=== PATIENT | male | born 1955 | race Caucasian/White ===

== ENCOUNTER 2016-04-12 13:49 | Emergency (ER) | payer SELFPAY ==
--- NOTE | 2016-04-12 19:14 | RAD ---
CHEST TWO VIEWS 04/12/16 Comparison is made with an 09/23/06 study. The heart has enlarged slightly in the interval and the aor ta has become slightly more dilated and tortuous. The lungs show no lobar consolidation or effusion. There was a questionable area of mild increase in lung markings in the vicinity of the base of the right upper lobe. The finding is equivocal but could represent a minimal infiltrate. The lungs are o therwise clear. IMPRESSION: 1. Interval mild increase in heart size. 2. Equivocal increase in lung markings around the base of the right upper lobe. POS: HOME
== END 2016-04-12 16:40 | disposition home or self-care (01) ==
LOC: BURERS 13:49
DX: J18.9 Pneumonia, unspecified organism (principal); F17.210 Nicotine dependence, cigarettes, uncomplicated
CPT/HCPCS: 71020

== ENCOUNTER 2017-02-18 09:10 | Emergency (ER) | payer MEDICAID, SELFPAY ==
--- NOTE | 2017-02-18 09:50 | RAD ---
CHEST TWO VIEWS: History: Cough, congestion, fever. Comparison: 04-12-16 FINDINGS: Cardiac silhouette is unremarkable. Pulmonary vasculature is upper limits of normal. Mediastinum is m idline. There is no confluent airspace consolidation, pneumothorax or pleural fluid evident. IMPRESSION: 1. No active cardiopulmonary abnormalities are demonstrated. POS: [facility]
== END 2017-02-18 09:50 | disposition home or self-care (01) ==
LOC: BURERS 09:10
DX: J20.9 Acute bronchitis, unspecified (principal); F17.210 Nicotine dependence, cigarettes, uncomplicated; I25.10 Atherosclerotic heart disease of native coronary artery without angina pectoris; I71.9 Aortic aneurysm of unspecified site, without rupture; Z79.899 Other long term (current) drug therapy
CPT/HCPCS: 71020

== ENCOUNTER 2018-02-09 20:09 | Emergency (ER) | payer MEDICAID, OTHER ==
[2018-02-09 20:49] LABS: Clarity Cloudy (Clear); Glucose, Urine (Dipstick) Negative (Negative); Leukocyte Negative (Negative); Nitrite Negative (Negative); Protein, Urine (Dipstick) Trace mg/dL (Neg-Trace); Specific Gravity, Urine 1.024 (1.002-1.036); pH, Urine 5.5 (5.0-9.0)
[2018-02-09 20:50] LABS: Bilirubin Small (Negative); Blood, Urine Large (Negative)
[2018-02-09 20:51] LABS: Bacteria/HPF Rare-Few HPF (None Seen); Crystals/HPF None Seen HPF (Negative); Hyaline Casts/LPF NONE SEEN LPF (0-3 Hyaline); Other Casts/LPF None Seen LPF (0-3 Hyaline); Oval Fat Bodies/HPF None Seen HPF (None Seen); RBC/HPF GREATER THAN 50-TNTC HPF (0-3); Renal Epithelial None Seen HPF (0-3); Sperm/HPF None Seen HPF (None Seen); Squamous Epithelial None Seen HPF (0-3); Transitional Epithelial NONE SEEN HPF (0-3); Trichomonas/HPF None Seen HPF (None Seen); WBC/HPF None Seen HPF (0-3); Yeast-All Forms None Seen HPF (None Seen)
--- NOTE | 2018-02-09 21:48 | CT ---
CT OF THE ABDOMEN AND PELVIS WITHOUT CONTRAST 02/09/[address] of the abdomen and pelvis was done for evaluation of flank pain. Axial slices were acquired followed by coronal and sagittal reconstructions. The lung bases are clear. Some coronary artery cristian cifications are noted. The liver and spleen are normal in size. There is a 2.4 cm cyst in the left lo be of the liver that is probably benign. Calcified granulomas are seen in the spleen. Gallbladder con tains several gallstones. The pancreas and adrenal glands appear normal. The abdominal aorta has some calcification in it but no aneurysm of concern. There is a 2.6 cm lucent mass in the upper portion of the right kidney. It is most likely an exophyti c cyst, but ultrasound is needed to confirm its cystic nature and be sure it is not solid. No stones were seen in the kidneys. There is no hydronephrosis or ureteral dilation. No ureteral calculi were s een. CT of the pelvis showed no pelvic masses, fluid collections, or inflammatory changes. The prostate is nearly 5 cm in diameter. There is a small fat filled left inguinal hernia. Degenerative changes are prominent in the lower lumbar spine. IMPRESSION: 1. No acute abdominal or pelvic findings. 2. Coronary artery calcifications. 3. Hepatic cyst left lobe. 4. 2.6 cm cystic area in the right kidney, most likely a cyst, but ultrasound is needed for conf irmation. Findings and need or followup ultrasound discussed with Dr. Callejas at 2120 on 02/09/18. POS: HOME
== END 2018-02-09 21:40 | disposition home or self-care (01) ==
LOC: BURERS 20:09
DX: R31.0 Gross hematuria (principal); N28.89 Other specified disorders of kidney and ureter; I25.10 Atherosclerotic heart disease of native coronary artery without angina pectoris; I25.2 Old myocardial infarction; F17.210 Nicotine dependence, cigarettes, uncomplicated; Z79.899 Other long term (current) drug therapy; Z79.82 Long term (current) use of aspirin
CPT/HCPCS: 74176; 81003; 81015